=== PATIENT | male | born 1990 | race Caucasian/White ===

== ENCOUNTER 2018-01-16 16:38 | Emergency (ER) | payer OTHER ==
[2018-01-16] MEDS: IBUPROFEN 600 MG TAB PO (17:29)
== END 2018-01-16 17:57 | disposition home or self-care (01) ==
LOC: M ED 16:38
DX: S62.356A Nondisplaced fracture of shaft of fifth metacarpal bone, right hand, initial encounter for closed fracture (principal); V48.4XXA Person boarding or alighting a car injured in noncollision transport accident, initial encounter; Y92.093 Driveway of other non-institutional residence as the place of occurrence of the external cause; F17.210 Nicotine dependence, cigarettes, uncomplicated
CPT/HCPCS: 73130

== ENCOUNTER → 2020-11-21 | Outpatient (REF) | payer OTHER ==
[~2020-11-21] MED LIST: HYDR-3715 PO; TYLE325T5 PO
[2020-11-21 14:12] LABS: PERCENT SATURATION 53.8 % (19.7-50.0)
== END ==
LOC: M LAB REF 12:12
PROVIDERS: ATTEND Internal Medicine
DX: R53.83 Other fatigue (principal)

== ENCOUNTER → 2020-12-23 | Outpatient (REF) | payer OTHER ==
[2020-12-23 13:08] LABS: MONO SCRN NEGATIVE (NEGATIVE)
== END ==
LOC: M LAB REF 12:08
PROVIDERS: ATTEND Internal Medicine
DX: R53.83 Other fatigue (principal); R13.10 Dysphagia, unspecified